=== PATIENT | female | born 1995 | race Caucasian/White ===

== ENCOUNTER 2020-09-17 22:27 | Emergency (ER) | payer OTHER, SELFPAY ==
[2020-09-17 22:29] VITALS: BP 153/97; PULSE 80; RESP 18; TEMP 36.9; O2SAT 98; BMI 33.4
--- NOTE | 2020-09-17 22:55 | XR_ITS ---
PROCEDURE: XR CHEST PORTABLE CLINICAL HISTORY: cough COMPARISON: No exams were available for comparison FINDINGS: The cardiomediastinal silhouette and pulmonary vascularity are within normal limits. The lungs are clear without infiltrates, suspicious nodules, or pleural effusions. No acute bony abnormalities. IMPRESSION: No acute findings. Dictated by: Farhan Aguero MD 09/18/2020 06:09 Farhan Aguero MD in [place] 09/18/2020 06:09
[2020-09-17 23:08] LABS: Adenovirus,PCR Not Detected (NotDetected); Bordetella Pertussis Not Detected (NotDetected); Chlamydophila Pneumoniae, PCR Not Detected (NotDetected); Coronavirus 229E Not Detected (NotDetected); Coronavirus NL63 Not Detected (NotDetected); Coronavirus OC43 Not Detected (NotDetected); Coronovirus HKU1,PCR Not Detected (NotDetected); Human Metapneumovirus Not Detected (NotDetected); Influenza A, PCR Not Detected (NotDetected); Influenza AH1, 2009 Not Detected (NotDetected); Influenza AH1, PCR Not Detected (NotDetected); Influenza AH3,PCR Not Detected (NotDetected); Influenza B, PCR Not Detected (NotDetected); Microscopic, Urine URINE MICROSCOPIC (MICROSCOPIC); Mycoplasma Pneumoniae, PCR Not Detected (NotDetected); Parainfluenza 1, PCR Not Detected (NotDetected); Parainfluenza 2, PCR Not Detected (NotDetected); Parainfluenza 3, PCR Not Detected (NotDetected); Parainfluenza 4, PCR Not Detected (NotDetected); Respiratory Syncytial Virus Not Detected (NotDetected); Rhinovirus/Enterovirus Not Detected (NotDetected)
[2020-09-17 23:19] LABS: Basophils # 0.1 K/mm3 (0-0.2); Basophils % 1.1 % (0.1-2.0); Eosinophils # 0.2 K/mm3 (0.0-0.4); Eosinophils % 4.3 % (0.1-12.0); Hematocrit 46.8 % (37.0-47.0); Lymphocytes # 2.8 K/mm3 (0.7-4.5); Lymphocytes % 50.1 % (10-50); Mean Corpuscular HGB Conc 34.1 g/dL (31.8-35.4); Mean Corpuscular Hemoglobin 29.4 pg (27.0-31.2); Mean Platelet Volume 7.1 fl (7.4-10.4); Monocytes # 0.5 K/mm3 (0.1-1.0); Monocytes % 8.7 % (1.7-9.3); Neutrophils % 35.8 % (37.0-80.0); Platelet Count 277 K/mm3 (142-424); Red Blood Count 5.44 M/mm3 (4.20-5.40); Red Cell Distribution Width 13.5 % (11.5-17.5); White Blood Count 5.5 K/mm3 (4.8-10.8)
[2020-09-17 23:22] LABS: MANUAL DIFFERENTIAL MANUAL DIFFERENTIAL (MANUAL DIFF)
[2020-09-17 23:32] LABS: Alanine Aminotransferase 34 U/L (12-78); Albumin Level 4.7 g/dl (3.5-5.0); Albumin/Globulin Ratio 1.3 (1.1-1.8); Alkaline Phosphatase 75 U/L (38-126); Anion Gap 10.9 mEq/L (5-15); Aspartate Amino Transferase 37 U/L (14-36); Bilirubin,Total 0.2 mg/dl (0.2-1.3); Blood Urea Nitrogen 14 mg/dl (7-17); Calcium 9.6 mg/dl (8.4-10.2); Carbon Dioxide 28 mmol/L (22.0-30.0); Chloride 104 mmol/L (98-107); Creatinine Clearance Estimated 194 mL/min (50-200); Estimated Glomerular Filt Rate 102 ml/min (>60); GFR (African American) 123 ML/MIN (>60); Globulin 3.7 g/dL (1.3-3.2); Glucose 101 mg/dl (74-100); Potassium 3.9 mmoL/L (3.5-5.1); Sodium 139 mmol/L (136-145); Total Protein,Serum 8.4 g/dl (6.3-8.2)
[2020-09-17 23:51] LABS: Appearance,Urine CLEAR (Clear); Bilirubin,Urine Negative (Negative); Blood, Urine Negative (Negative); Color,Urine YELLOW (Yellow); Glucose,Urine (UA) Negative (Negative); Ketones,Urine Negative (Negative); Leukocyte Esterase,Urine Negative (Negative); Nitrate,Urine Negative (Negative); PH,Urine 6.5 (5.0-8.5); Protein,Urine Negative (Negative); Urobilinogen,Urine 0.2 EU/dl (0.2)
[2020-09-17 23:54] LABS: Urine Pregnancy, HCG Qual. Negative (Negative)
[2020-09-17 23:56] LABS: Amorphous Sediment,Urine Trace /lpf
--- NOTE | 2020-09-18 00:27 | [facility].EDURI ---
ED Disposition Clinical Impression: Exposure to COVID-19 virus, Viral infection Disposition: Home, Self-Care Condition on Discharge: Good Instructions: DI for COVID-19 (Suspected or Confirmed ) Additional Instructions: fluids and call pcp in am Referrals: Osman Rai [Primary Care Provider] - - Critical Care Critical Care Time: No Attestation: On 09/17/20, the high probability of a clinically significant, sudden or life threatening deterioration of the following system(s) required my full and direct attention, intervention and personal management. The time I documented below is in addition to time spent performing reported procedures but includes the following listed in this critical care notation. Medical Decision Making - Medical Records Medical records reviewed: Yes: I reviewed the patient's medical records. - [place] Inquiry Pt receiving controlled substance: No Vital Signs: 09/17/20 22:29 Temperature 98.4 F Temperature Source Oral Pulse Rate [Right Radial] 80 Respiratory Rate 18 Blood Pressure [Right Arm] 153/97 H Blood Pressure Mean [Right Arm] 115 Blood Pressure Source [Right Arm] Automatic Cuff Blood Pressure Position [Right Arm] Sitting 02 Sat by Pulse Oximetry 98 Oxygen Delivery Method Room Air - Lab Data Lab results reviewed: Yes: I reviewed the patient's lab results. Lab Results 09/17/20 23:00: Urine Color Yellow, Urine Appearance Clear, Urine pH 6.5, Ur Specific Harrison 1.020, Urine Protein Negative, Urine Glucose (UA) Negative, Urine Ketones Negative, Urine Blood Negative, Urine Nitrate Negative, Urine Bilirubin Negative, Urine Urobilinogen 0.2, Ur Leukocyte Esterase Negative, Amorphous Sediment Trace 09/17/20 23:00: Urine HCG, Qual Negative 09/17/20 23:05: WBC 5.5, RBC 5.44 H, Hgb 16.0, Hct 46.8, MCV 86.0, MCH 29.4, MCHC 34.1, RDW 13.5, Plt Count 277, MPV 7.1 L, Neut % (Auto) 35.8 L, Lymph % (Auto) 50.1 H, [place] % (Auto) 8.7, Eos % (Auto) 4.3, Baso % (Auto) 1.1, Neut # (Auto) 2.0, Lymph # (Auto) 2.8, [place] # (Auto) 0.5, Eos # (Auto) 0.2, Baso # (Auto) 0.1 09/17/20 23:05: Sodium 139, Potassium 3.9, Chloride 104, Carbon Dioxide 28, Anion Gap 10.9, BUN 14, Creatinine 0.70, Estimated Creat Clear 194, Estimated GFR 102, Est GFR ( Amer) 123, Glucose 101 H, Calcium 9.6, Total Bilirubin 0.2, AST 37 H, ALT 34, Alkaline Phosphatase 75, Total Protein 8.4 H, Albumin 4.7, Globulin 3.7 H, Albumin/Globulin Ratio 1.3 Result diagrams: 09/17/20 23:05 09/17/20 23:05 Orders (Tests/Meds): ED MEDICATIONS Generic Name Dose Route Start Last Admin Trade Name Freq PRN Reason Stop Dose Admin Sodium Chloride 1,000 mls @ 999 mls/hr 09/17/20 23:00 09/17/20 23:11 Sod Chlor 0.9% 1000ml Bag IV 09/18/20 00:00 999 mls/hr .[id number] LUZMARIA Administration Discontinued Medications Generic Name Dose Route Start Last Admin Trade Name Freq PRN Reason Stop Dose Admin Acetaminophen 1,000 mg 09/17/20 23:12 09/17/20 23:13 Acetaminophen 500mg Tab PO 09/17/20 23:13 1,000 mg ONCE ONE Administration Dexamethasone Sodium Phosphate 10 mg 09/17/20 23:02 09/17/20 23:11 Dexamethasone 4mg/Ml 1ml Vial IV 09/17/20 23:03 10 mg ONCE ONE Administration ORDERS Category Date Time Status XR chest portable Stat Exams 09/17/20 22:55 Taken Complete Blood Count Auto Diff Stat Lab 09/17/20 23:05 Results Full Resp Panel w/COVID ([facility]) Routine Lab 09/17/20 23:00 Received - Radiology Data #1 Image(s): Chest Image Reviewed: Yes I reviewed the patient's radiology image Preliminary Findings: Normal/NAD Medical Decision Narrative: possible covid-19 and will send home to quarantine and await results URI/Sore Throat HPI - General Chief Complaint: Upper Respiratory Infection Stated Complaint: sore throat,MABRY Time Seen by Provider: 09/18/20 00:00 Mode of Arrival: Ambulatory Source of Information: Patient, Medical Record Limitations: No Limitations Description of Symptoms (Reca
[2020-09-18 00:51] VITALS: BP 149/79; PULSE 80; RESP 14; TEMP 36.8; O2SAT 98
[2020-09-18 01:30] LABS: Lymphocytes % 63 % (10-50); Neutrophils % 35 % (42-76); Platelet Estimate Normal; RBC Morphology Normal; Total Cells Counted 100
[2020-09-18 01:39] LABS: Coronavirus 19, PCR Detected (NotDetected)
--- NOTE | 2020-09-18 02:12 | PC.NURSE ---
notified patient of positive covid results. patient was given to covid discharge instruction during discharge.
== END 2020-09-18 00:52 | disposition home or self-care (01) ==
PROVIDERS: Emergency Provider Emergency Medicine; PCP Pediatrics
DX: U07.1 COVID-19 (principal)
CPT/HCPCS: 71045; 80053; 81001; 81025; 85007; 85025; 87581; 87633; 87798; 99283